=== PATIENT | male | born 1980 | race Caucasian/White ===

== ENCOUNTER 2017-02-09 10:38 | Emergency (ER) | payer OTHER ==
[2017-02-09] MEDS ORDERED: TETRACAINE HCL 150 DROP BTL ONE (11:00)
[2017-02-09] MEDS ORDERED: DIPHTH,PERTUSS(ACELL),TET VAC 0.5 ML VIAL IM ONE ×2 (11:56→11:59)
[2017-02-09] MEDS ORDERED: GENTAMICIN SULFATE 3.5 APPL TUBE RIGHTEYE ONE (11:56)
--- OUTSIDE RECORDS SUMMARY | 2017-02-09 11:57 | XMS REPORT | Continuity of Care Document ---
:1980 Author Organization [employer] [place] [address] Care Team Providers Name Role Phone Unavailable Primary Care Provider Unavailable Source Comments This disclosure is being made pursuant to the [employer] program and maynot contain all information available regarding this patient.[employer] Active Allergies and Adverse Reactions Not on File Current Medications Be aware that medications may not be up to date as of this document. Alwaysverify current medications with the patient. Not on file Active Problems Not on file Social History Tobacco Use Types Packs/Day Years Used Date Never Assessed Plan of Care Health Maintenance Due Date Last Done Comments Retired-Pertussis Vaccine Adult 02/21/2000 Retired-Tetanus Vaccine Adult 02/21/2000 Retired-INFLUENZA VACCINE 04/26/2015 Results from Last 3 Months Not on file
[2017-02-09] MEDS ORDERED: GENTAMICIN SULFATE 3.5 APPL TUBE ONE (11:59)
--- NOTE | 2017-02-09 12:03 | ERNOTE ---
ENT [facility] Date of Service: 02/09/17 Presenting Symptoms: eye pain Time Seen by Provider: 02/09/17 11:45 Source: patient, RN notes reviewed Exam Limitations: no limitations - Immun/Allergies/Home Medications Immunizations: IMMUNIZATION HX Immunizations Up to Date Yes Allergies/Adverse Reactions: Allergies Allergy/AdvReac Type Severity Reaction Status Date / Time No Known Allergies Allergy Unverified 02/09/17 10:49 Home Medications: HOME MEDICATIONS NK [No Home Medication] 02/09/17 [Last Taken Unknown] - History of Present Illness Narrative: 36 y/o male ambulatory to the ED for an eye injury that occurred last evening. He was struck in the eye with a tennis ball. He has been having ongoing pain and tearing this morning. He does not wear glasses or contacts. He is unsure of when his last tetanus vaccination was. Date (Duration): 02/08/17 ENT Location: Present: eye (R) Prearrival Treatment: Present: no prearrival treatment Associated Symptoms - ENT: Reports: denies symptoms Prior Treament: Denies: recently seen, similar symptoms before Review of Systems - Review of Systems Constitutional: Absent: recent illness, fever, malaise EYE: Present: eye pain, tearing. Absent: eye discharge, vision changes ENT: Absent: nose congestion, sore throat Respiratory: Absent: shortness of breath, cough Cardiology: Present: no symptoms reported Gastrointestinal/Abdominal: Present: no symptoms reported Genitourinary: Present: no symptoms reported Musculoskeletal: Present: no symptoms reported Skin: Absent: rash, lesions, lumps Neurological: Absent: headache, dizziness/light-headedness Endocrine: Present: no symptoms reported Hematologic/Lymphatic: Present: no symptoms reported Psych: Present: no symptoms reported - Patient's Past Medical History Patient History - Medical: No pertinent hx Patient History - Cardiac/Respiratory: No pertinent hx Patient History - Cancer: No Hx of Cancer Patient History - Surgical Procedures: T & A, Other - Social History Living Situations: home Smoking Status: Current every day smoker Cigarettes Packs Per Day: 0.5 Have you smoked in the past 12 months: Yes Alcohol Use: heavy Drug Use: none - Immunizations Immunizations Up to Date: No Physical Exam - Physical Exam General Appearance: Present: wd/wn, alert, mild distress Eye Exam: Normal inspection: left, PERRL: bilateral, EOMI: bilateral, Eyelid inflammation: right, Photophobia: right, Other: right - moderate conjunctival injection present, tearing Respiratory: Present: no respiratory distress, no accessory muscle use Neurological Exam: Present: alert, oriented, normal mood/affect Skin Exam: Present: normal color, warm/dry ED Progress - Vital Signs Patient's Vital Signs:: I have reviewed the patient's vital signs. Vital Signs: Vital Signs 02/09/17 10:46 Temperature 37.3 C Pulse Rate 83 Respiratory 12 Rate Blood Pressure 153/105 O2 Sat by Pulse 95 Oximetry - Progress/Reassessment Chief Complaint: Eye Injury/Trauma Progress:: Improved Procedures Eye Location: right eye Tetracaine Drops Administered: Yes Eye - Cornea: Right: examined w/fluorescein, fluorescein dye uptake, abrasion Antibiotic Ointment/Drps Admin: right eye Complications: Pt davy procedure well Departure Clinical Impression: Corneal abrasion, right Qualifiers: Encounter type: initial encounter Qualified Code(s): S05.01XA - Injury of conjunctiva and corneal abrasion without foreign body, right eye, initial encounter - Departure Disposition: Home Follow Up Needed Condition: Stable Instructions: Corneal Abrasion, [id number] Additional Instructions: Use eye ointment as directed Ibuprofen for pain - 600 mg(3 tablets) every 6 hours with food as needed Contact an eye doctor if your symptoms have not resolved in 2 days
[2017-02-09 12:07] VITALS: BP 151/96
== END 2017-02-09 12:13 | disposition home or self-care (01) ==
LOC: ER 10:38
DX: S05.01XA Injury of conjunctiva and corneal abrasion without foreign body, right eye, initial encounter (principal); Z72.0 Tobacco use; X58.XXXA Exposure to other specified factors, initial encounter; Y93.69 Activity, other involving other sports and athletics played as a team or group; Y92.9 Unspecified place or not applicable; Z23 Encounter for immunization